=== PATIENT | female | born 1985 | race Caucasian/White ===

== ENCOUNTER 2025-01-09 13:38 | Emergency (ER) | payer SELFPAY ==
[2025-01-09 13:41] VITALS: BP 145/95; PULSE 114; RESP 18; TEMP 36.6; O2SAT 100
[2025-01-09] MEDS: Lidocaine 1% (20 ml mdv) 20 ML Vial INFILT (16:10)
--- NOTE | 2025-01-09 17:21 | ED.VIS.LOWEX ---
HPI History of Present Illness Chief Complaint: Lower Extremity Injury Detail of Chief Complaint: Crush injury toes right foot Informant: patient Occured/Mechanism Mechanism/Context: Yes blunt trauma Comment: Detailed HPI narrative Onset/Context/Timing Onset: Today and Hours Context: Sudden Onset Timing: Continuous Quality of Pain: Sharp, Dull and Aching Current Severity: Moderate Maximum Severity: Severe Worsened by: Movement of her throat Relieved by: Nothing Associated Symptoms Associated Symptoms: Positive for Loss of Funtion; Negative for Parasthesia or Weakness Narrative Narrative: Patient is 39-year-old woman who presents from now clinic because of open fracture due to crush injury of her right foot. Images were done at the clinic. Images were reviewed by me. Patient has a displaced fracture of her distal phalanx of the great and second toe. Patient denies paresthesia, anesthesia or motor weakness. Tetanus is unknown. She has no antibiotic allergies. She did request fungal medicine because she gets a yeast infection. She took NSAID while waiting in the waiting room because of increased pain. Tetanus Immunization: Unknown Prior similar symptoms: No Recent Illness/Hospitalization: No PFSH PFS Medical History Factor 5 Leiden mutation, heterozygous Home Medications ?Medication ?Instructions ?Recorded ?Last Taken ?Type amoxicillin 875 mg-potassium 1 tab PO BID #20 tabs 09/07/23 Unknown Rx clavulanate 125 mg tablet cephalexin 500 mg capsule 500 mg PO Q6 #16 CAPSULES 01/09/25 Unknown Rx fluconazole 200 mg tablet 200 mg PO DAILY #1 TAB 01/09/25 Unknown Rx (Diflucan) hydrocodone-acetaminophen 5-325mg 1 tab PO Q6H PRN PRN Pain 3 days 01/09/25 Unknown Rx 5mg-325mg #10 TABLETS Allergy/AdvReac Type Severity Reaction Status Date / Time No Known Allergies Allergy Verified 01/09/25 13:39 Surgical History History of cholecystectomy Social History (Updated 01/09/25 @ 17:[address] Drew Lyles MD) household members: spouse and children Smoking Status: Never smoker ROS ROS ED Constitutional Constitutional ED: Denies chills, fever(s), subjective or sweats Gastrointestinal Gastrointestinal: Denies nausea or vomiting Musculoskeletal Musculoskeletal: Reports other Details: Detailed HPI narrative Integumentary Reports other Details: HPI narrative ; Denies abscess, Abrasions or rash Neurologic Neurologic: Denies paresthesias Hematologic/Lymphatic Hematologic/Lymphatic: Denies easy bleeding or easy bruising EXAM Physical Exam Const Vital Signs: 01/09/25 13:41 Temperature 97.8 F Temperature Source Temporal Pulse Rate 114 H Respiratory Rate 18 Blood Pressure 145/95 H Blood Pressure Mean 111 Pulse Ox 100 Oxygen Delivery Method Room Air Positive well nourished and well developed General Appearance ED: well developed; Negative for NAD HEENT normocephalic and atraumatic Eyes PERRL Eyes Narrative: Extract muscle intact. Sclera is anicteric. Resp normal respiratory effort Cardio regular rate and regular rhythm Extremity Negative for normal to inspection or full ROM Extremity Narrative: Incomplete avulsion nail of the right great toe. Small subungual hematoma of the second right toe and a laceration dorsal surface of the third right toe. Capillary refill is normal. Sensation is normal. There is bruising noted of the midfoot. Neuro oriented x3, CN's II-XII intact bilaterally and moves all extremities Sensorium / Orientation: alert Psych Mood & Affect: anxious Skin Skin Narrative: Described under the extremity portion of the EMR MDM MDM MDM Narrative Medical decision making narrative: With an incomplete of her right great toenail this will need to be removed and the nailbed will need repair. There is also laceration on the medial side of the great toe that will require repair of the 1 cm length. Laceration on the third toe is 1 cm in length. Since x-ray was performed there is no indication to repeat. Patient received first dose of antibiotics in the emergency department. Tetanus was updated. Case was discussed with Dr. Radford. He requested patient call the office to be seen first part of next week and he will discuss her treatment options. Procedures Other Procedures Procedure(s): Digital block of the right great, 2nd and 3rd toe. The laceration on the third toe was irrigated with 100 cc of normal saline. The laceration involving the great toe was irrigated with 150 cc of normal saline. Using 5-0 Ethilon simple Rup sutures placed to close the wounds on the dorsal surface of the third toe and medial surface of the great toe. Total of 2 stitches placed for the great and third toe. Nailbed was repaired using 5-0 Rapide. Wound approximated well. The nail was cleansed and sutured in place. Discharge Plan Triage Chief Complaint: Lower Extremity Injury ED Provider: Drew Lyles Dx/Rx/DC Orders Clinical Impression: Open displaced fracture of distal phalanx of great toe, Displaced fracture of distal phalanx of lesser toe of right foot, Hematoma, subungual, second toe, right, Laceration of third toe of right foot, Avulsed toenail Instructions: ED Laceration, Foot: All Closures, ED Fracture, Toe, Open Prescriptions: New hydrocodone-acetaminophen 5-325 mg tablet 1 tab PO Q6H PRN PRN (Reason: Pain) 3 Days Qty: 10 0RF cephalexin 500 mg capsule 500 mg PO Q6 Qty: 16 0RF fluconazole [Diflucan] 200 mg tablet 200 mg PO DAILY Qty: 1 0RF Rx Instructions: Take if you develop yeast infection No Action amoxicillin-pot clavulanate 875-125 mg tablet 1 tab PO BID Qty: 20 0RF Primary Care Provider: Prosper Ngo Referrals: Prosper Ngo MD [Primary Care Provider] - Chiki Radford DPM [Med Staff - Active Staff] - 5-7 Days Activity Restrictions/Additional Instructions: 1. Call Dr. Radford's office tomorrow for appointment to be seen first part of next week. He will discuss your treatment options. 2. Take antibiotics till gone 3. Keep your foot absolutely clean and dry as possible 4. Elevate is much as possible 5. Apply ice 6-8 times a day Print Language: [place] Disposition Disposition: Home, Self Care
[2025-01-09] MEDS: HYDROcodone Bitartrate/Apap 5/325 Tablet PO (17:38)
[2025-01-09 18:07] VITALS: BP 138/60; PULSE 70; RESP 18; TEMP 36.8; O2SAT 100
== END 2025-01-09 18:09 | disposition home or self-care (01) ==
PROVIDERS: Emergency Provider Emergency Medicine; PCP Family Medicine; Visit Provider Emergency Medicine
DX: S92.531B Displaced fracture of distal phalanx of right lesser toe(s), initial encounter for open fracture (principal); S92.421B Displaced fracture of distal phalanx of right great toe, initial encounter for open fracture; S90.221A Contusion of right lesser toe(s) with damage to nail, initial encounter; W23.0XXA Caught, crushed, jammed, or pinched between moving objects, initial encounter
CPT/HCPCS: 11760; 12001; 90715; 99285

== ENCOUNTER → 2025-01-09 | Outpatient (CLI) | payer OTHER, SELFPAY | END | disposition home or self-care (01) | LOC: MTRAD 11:32 | PROVIDERS: PCP Family Medicine; Referring Provider Physician Assistant Medical; Visit Provider Physician Assistant Medical | DX: M79.671 Pain in right foot (principal) | CPT/HCPCS: 73630 ==